=== PATIENT | male | born 1945 ===

== ENCOUNTER 2022-03-12 08:15 | Outpatient (CLI) | payer OTHER | END 2022-03-12 23:59 | disposition home or self-care (01) | LOC: LAB SPEC 08:15 | DX: N39.0 Urinary tract infection, site not specified (principal) | CPT/HCPCS: 87077; 87088; 87186 ==

== ENCOUNTER 2022-03-13 11:42 | Outpatient (CLI) | payer OTHER | END 2022-03-13 23:59 | disposition home or self-care (01) | LOC: LAB 11:42 | DX: N39.0 Urinary tract infection, site not specified (principal) | CPT/HCPCS: 87077; 87088; 87186 ==